=== PATIENT | female | born 1995 | race Caucasian/White ===

== ENCOUNTER 2017-03-05 01:13 | Inpatient (IN) | payer OTHER ==
[~2017-03-05] VITALS: Ht 160 cm; Wt 78.5 kg
[2017-03-05] MEDS ORDERED: RINGERS SOLUTION,LACTATED 1,000 ML IV ONE ×3 (01:48→14:33)
[2017-03-05] MEDS ORDERED: OXYTOCIN 30 UNITS/LACT RINGERS 500 ML IV ONE (01:50)
[2017-03-05] MEDS ORDERED: RINGERS SOLUTION,LACTATED 1,000 ML IV PRN (01:50)
[2017-03-05] MEDS ORDERED: AMPICILLIN SODIUM 2 GM/NS 100 ML IV ONE (02:00)
[2017-03-05] MEDS ORDERED: CITRIC ACID/SODIUM CITRATE 30 ML SOLUTION UDCUP PO PRN (02:00)
[2017-03-05] MEDS ORDERED: METOCLOPRAMIDE HCL 5 MG/ML 2 ML VIAL IVP PRN (02:00)
[2017-03-05] MEDS: RINGERS SOLUTION,LACTATED 1,000 ML IV SCH ×4 (02:20→14:22)
[2017-03-05 02:28] LABS: BASOPHILS # (AUTO) 0.01 K/uL (0.00-0.20); BASOPHILS % (AUTO) 0.1 % (0.0-2.0); EOSINOPHILS # (AUTO) 0.09 K/uL (0.00-0.70); EOSINOPHILS % (AUTO) 0.62 % (1.0-6.0); HEMATOCRIT 36.6 % (36-46); HEMOGLOBIN 12.6 g/dL (12.0-16.0); LYMPHOCYTES # (AUTO) 1.4 K/uL (1.0-4.8); LYMPHOCYTES % (AUTO) 10.3 % (22.0-44.0); MEAN CORPUSCULAR HEMOGLOBIN 30.7 pg (26.0-34.0); MEAN CORPUSCULAR HGB CONC 34.4 G/dL (31.0-37.0); MEAN CORPUSCULAR VOLUME 89 fL (80-100); MONOCYTES # (AUTO) 0.7 K/uL (0.1-1.0); MONOCYTES % (AUTO) 5.1 % (2.0-9.0); NEUTROPHILS # (AUTO) 11.7 K/uL (1.8-7.7); PLATELET COUNT (AUTO)-OB 160 K/uL (150-450); RED CELL DISTRIBUTION WIDTH 12.3 % (11.5-14.5)
[2017-03-05 03:06] VITALS: BP 116/67
[2017-03-05] MEDS: FentaNYL CITRATE-PF 100 MCG/2 ML VIAL IVP PRN ×2 (03:50→03:55)
[2017-03-05] MEDS ORDERED: ROPIVACAINE HCL 0.2% 100 ML ED ONE ×2 (05:33→12:13)
[2017-03-05] MEDS ORDERED: BUPIVACAINE HCL/PF 0.25% 10 ML VIAL ONE (05:33)
[2017-03-05] MEDS ORDERED: LIDOCAINE HCL/PF 2% 5 ML VIAL ONE (05:33)
[2017-03-05] MEDS: AMPICILLIN SODIUM 1 GM/NS 50 ML IV SCH ×2 (06:16→10:33)
[2017-03-05] MEDS ORDERED: ROPIVACAINE HCL 0.2% 100 ML ED PRN (06:17)
[2017-03-05] MEDS ORDERED: PROMETHAZINE HCL 12.5 MG in SODIUM CHLORIDE 0.9% 50 ML IV PRN (06:30)
[2017-03-05] MEDS ORDERED: ONDANSETRON HCL 4 MG/2 ML VIAL IVP PRN (06:30)
[2017-03-05] MEDS ORDERED: NALBUPHINE HCL 10 MG/ML VIAL IVP PRN ×2 (06:30)
[2017-03-05] MEDS ORDERED: DiphenhydrAMINE HCL 50 MG/ML VIAL IVP PRN (06:30)
[2017-03-05] MEDS ORDERED: BETAMETHASONE SOLUSPAN 6 MG/ML 5 ML VIAL IM SCH (06:30)
[2017-03-05] MEDS ORDERED: OXYGEN THERAPY IH SCH (08:00)
[2017-03-05] MEDS ORDERED: GLYCERIN/WITCH HAZEL LEAF 40 PADS JAR TP PRN (14:45)
[2017-03-05] MEDS ORDERED: MEASLES/MUMPS/RUBELLA VACCINE, LIVE 0.5 ML/VIAL SQ ONE (14:45)
[2017-03-05] MEDS ORDERED: LANOLIN 7 GM OINTMENT TP PRN (14:45)
[2017-03-05] MEDS ORDERED: BENZOCAINE 20%/MENTHOL 56 GM SPRAY CANISTER TP PRN (14:45)
[2017-03-05] MEDS ORDERED: OxyCODONE HCL/ACETAMINOPHEN 5-325 MG TABLET PO PRN ×2 (14:45)
[2017-03-05] MEDS: MAGNESIUM HYDROXIDE SUSPENSION 30 ML UDCUP PO SCH (21:32)
[2017-03-05] MEDS: IBUPROFEN 600 MG TABLET PO PRN (21:33)
[2017-03-06] MEDS: MAGNESIUM HYDROXIDE SUSPENSION 30 ML UDCUP PO SCH (08:59)
[2017-03-06] MEDS: IBUPROFEN 600 MG TABLET PO PRN (09:00)
[2017-03-06] MEDS ORDERED: PREN1TAB80 PO (09:25)
[2017-03-06] MEDS ORDERED: IBUP-2070 PO (09:27)
[2017-03-06] MEDS ORDERED: DSS100 PO (09:28)
== END 2017-03-06 14:40 | disposition home or self-care (01) | DRG 774 ==
LOC: OBSVTOIN 01:13 → 4S 01:13
PROVIDERS: ADMIT Obstetrics & Gynecology; ATTEND Obstetrics & Gynecology
PROC: 10E0XZZ Delivery of Products of Conception, External Approach (ICD-10-PCS; principal; 2017-03-05)
PROC: 4A1HXCZ Monitoring of Products of Conception, Cardiac Rate, External Approach (ICD-10-PCS; 2017-03-05)
PROC: 3E0R3BZ Introduction of Anesthetic Agent into Spinal Canal, Percutaneous Approach (ICD-10-PCS; 2017-03-05)
PROC: 00HU33Z Insertion of Infusion Device into Spinal Canal, Percutaneous Approach (ICD-10-PCS; 2017-03-05)
DX: O98.32 Other infections with a predominantly sexual mode of transmission complicating childbirth (principal); O60.14X0 Preterm labor third trimester with preterm delivery third trimester, not applicable or unspecified; Z37.0 Single live birth; A63.0 Anogenital (venereal) warts; Z3A.35 35 weeks gestation of pregnancy; O42.013 Preterm premature rupture of membranes, onset of labor within 24 hours of rupture, third trimester
CPT/HCPCS: 86850; 86900; 86901; J0290; J0702; J2765; J2795; J3010; J3490; J7120